=== PATIENT | male | born 1975 | race Caucasian/White ===

== ENCOUNTER 2017-03-22 16:00 | Emergency (ER) | payer BC ==
[~2017-03-22] VITALS: Ht 182.9 cm; Wt 100.0 kg
[~2017-03-22 16:00] MED LIST: AQUAPHOR OINTM105 GM TP; ASPIR-TRIN325 M1 PO; ATARAX,VISTARIL50 MG PO; EXCEDRIN MIGRA1 EAC3 PO; EXCEDRIN MIGRA1 EACH PO; LEXAPRO10 MG PO; NIFEDIPINE ER30 M1 PO; NOHOMEMEDS; Norvasc PO; OXYCODONE HCL10 MG PO; PLAVIX75 MG PO; PREDNISONE20 MG PO; Protonix PO; REGLAN10 MG PO; ZANTAC150 MG PO; ZESTRIL,PRINIVI10 MG PO
[2017-03-22 16:42] LABS: HEMATOCRIT 43.7 % (38.0-50.0); MCH 30.8 PG (29.0-34.0); MCHC 33.9 G/DL (30.0-36.0); MEAN PLAT.VOLUME 10.7 uM^3 (9.0-12.4); PLATELET COUNT 222 K/uL (156-360); RBC DIS.WIDTH-SD 43.8 % (39-53); WHITE BLOOD COUNT 9.5 K/uL (4.1-10.2)
[2017-03-22 16:50] LABS: CHLORIDE 105 mEq/L (99-109); POTASSIUM 3.9 mEq/L (3.7-5.4); SODIUM 141 mEq/L (136-147)
[2017-03-22 16:52] LABS: GLUCOSE 94 mg/dL (70-99)
[2017-03-22 16:54] LABS: ANION GAP 10 MEQ/L (2-14)
[2017-03-22 16:56] LABS: GFR ESTIMATE (CALCULATED) > 59 mL/min/
[2017-03-22 16:57] LABS: UREA NITROGEN (BUN) 14 mg/dL (9-23)
[2017-03-22] MEDS ORDERED: VENTOLIN HFA18 GM IH (20:27)
[2017-03-22] MEDS ORDERED: LEVAQUIN750 MG PO (20:27)
[2017-03-22] MEDS ORDERED: PREDNISONE20 MG PO (20:27)
[2017-03-22 21:50] VITALS: BP 137/84
== END 2017-03-22 21:18 | disposition home or self-care (01) ==
LOC: EME 16:00
DX: J18.9 Pneumonia, unspecified organism (principal); I10 Essential (primary) hypertension; K21.9 Gastro-esophageal reflux disease without esophagitis; I25.2 Old myocardial infarction; G43.909 Migraine, unspecified, not intractable, without status migrainosus; F17.210 Nicotine dependence, cigarettes, uncomplicated; Z87.442 Personal history of urinary calculi; Z88.5 Allergy status to narcotic agent; Z88.8 Allergy status to other drugs, medicaments and biological substances
CPT/HCPCS: 71020; 71260; 80048; 85027; 99281; 99284; J7030; J7512